=== PATIENT | female | born 1995 | race Caucasian/White ===

== ENCOUNTER 2022-02-12 10:36 | Emergency (ER) | payer OTHER ==
[~2022-02-12] VITALS: Ht 167.6 cm; Wt 65.0 kg
[2022-02-12 10:44] VITALS: BP 144/52
== END 2022-02-12 13:30 | disposition left against medical advice (07) ==
LOC: ER 10:36
DX: Z53.21 Procedure and treatment not carried out due to patient leaving prior to being seen by health care provider (principal)